=== PATIENT | male | born 1940 | race Caucasian/White ===

== ENCOUNTER → 2018-02-10 | Outpatient (CLI) | payer OTHER ==
[~2018-02-10] MED LIST: Aspirin PO; GLUC-145 PO; HYDR-2132 PO; HYDR12.54 PO
== END | disposition home or self-care (01) ==
LOC: RAH 14:48
PROVIDERS: ATTEND Internal Medicine
DX: N50.3 Cyst of epididymis (principal)
CPT/HCPCS: 76870

== ENCOUNTER → 2018-06-09 | Outpatient (CLI) | payer OTHER | END | disposition home or self-care (01) | LOC: SHCH 08:15 | PROVIDERS: ATTEND Internal Medicine Cardiovascular Disease | DX: R94.31 Abnormal electrocardiogram [ECG] [EKG] (principal) | CPT/HCPCS: 93306 ==

== ENCOUNTER → 2018-06-16 | Outpatient (CLI) | payer OTHER ==
[~2018-06-16] VITALS: Ht 175.3 cm; Wt 95.3 kg
[~2018-06-16] MED LIST changes: +REGADENOSON 0.4 MG/5 ML PF SYG IVP SCH
== END | disposition home or self-care (01) ==
LOC: SHCH 08:20
PROVIDERS: ATTEND Internal Medicine Cardiovascular Disease
DX: Z01.810 Encounter for preprocedural cardiovascular examination (principal)
CPT/HCPCS: 78452; 93017; 96374; A9500 ×2; J2785

== ENCOUNTER 2018-10-23 06:32 | Day surgery (SDC) | payer OTHER ==
[2018-10-21 10:36] VITALS: BP 142/58
[2018-10-21 10:45] LABS: BASOPHILS % (AUTO) 1.2 % (0.0-5.0); HEMATOCRIT 35.5 % (42-54); LYMPHOCYTES % (AUTO) 28.5 % (21.0-51.0); MEAN CORPUSCULAR HEMOGLOBIN 32.9 pg (27.0-33.0); MEAN CORPUSCULAR HGB CONC 33.6 g/dL (32.0-36.0); MEAN CORPUSCULAR VOLUME 97.9 fL (79-99); MONOCYTES % (AUTO) 10.4 % (3.0-13.0); NEUTROPHILS % (AUTO) 56.9 % (40.0-77.0); PLATELET COUNT (AUTO) 179 K/uL (130-400); RED BLOOD CELL COUNT(AUTO) 3.62 MIL/uL (4.50-6.20); RED CELL DISTRIBUTION WIDTH 12.8 % (11.0-15.5)
[2018-10-21 10:45] LABS: APPEARANCE,URINE Clear (CLEAR); BILIRUBIN,URINE Negative (NEGATIVE); COLOR,URINE Yellow (YELLOW); GLUCOSE, URINE (UA) Negative (NEGATIVE); KETONES,URINE Negative (NEGATIVE); LEUKOCYTE ESTERASE ,URINE Negative (NEGATIVE); NITRATE,URINE Negative (NEGATIVE); OCCULT BLOOD,URINE Negative (NEGATIVE); PROTEIN,URINE Negative (NEGATIVE)
[2018-10-21 10:53] LABS: CREATININE 0.9 mg/dL (0.5-1.5); POTASSIUM 4.3 mmol/L (3.5-5.1)
[2018-10-21 10:56] LABS: INR 0.95 (0.85-1.15); PARTIAL THROMBOPLASTIN TIME 29.3 SEC (26.3-35.5)
[2018-10-23] VITALS (8 sets, daily range): BP systolic 120–138; BP diastolic 51–62
[~2018-10-23] VITALS: Ht 179.1 cm; Wt 92.8 kg
[~2018-10-23 06:32] MED LIST changes: -Aspirin PO; -GLUC-145 PO; -HYDR-2132 PO; -HYDR12.54 PO; +LISI2.5T2 PO; -REGADENOSON 0.4 MG/5 ML PF SYG IVP SCH; +ROSU20TA31 PO
--- NOTE | 2018-10-23 06:46 | NUR ---
PATIENT ARRIVED PATIENT ARRIVED TO DAY PATIENT ACCOMPANIED BY SPOUSE. PATIENT AAOX3, RESPIRATIONS UNLABORED, VITAL SIGNS STABLE, DENIES PAIN AT THIS TIME. PROCEDURE VERIFIED AND CONFIRMED WITH PATIENT. PATIENT INSTRUCTED ON HOSPITAL ROUTINE, ALL QUESTIONS/CONCERNS ADDRESSED. CALL REYES WITHIN REACH, SIDE RAILS UPX2, BED IN LOWEST POSITION.
[2018-10-23] MEDS ORDERED: SODIUM CHLORIDE 0.9% 1000ML 1,000 ML IV ONE (08:24)
--- NOTE | 2018-10-23 08:30 | NUR ---
PATIENT TRANSFERRED PATIENT TAKEN TO CADDY/CADDIE SUPERVISOR VIA BED BY BLAZE RUIZ. SPOUSE INSTRUCTED TO WAIT IN ROOM FOR PATIENT TO RETURN IN ORDER TO SPEAK WITH PHYSICIAN FOLLOWING THE PROCEDURE.
[2018-10-23] MEDS ORDERED: LIDOCAINE HCL 1% 20 ML VIAL ONE (08:34)
[2018-10-23] MEDS ORDERED: IOHEXOL-350 50ML VIAL IV ONE (08:35)
[2018-10-23] MEDS ORDERED: BIVALIRUDIN 250 MG/VIAL IV ONE (08:35)
[2018-10-23] MEDS ORDERED: HEPARIN SODIUM 1000UNIT/ML 10ML VIAL ONE (08:35)
[2018-10-23] MEDS ORDERED: VERAPAMIL HCL 2.5 MG/ML VIAL ONE (08:35)
[2018-10-23] MEDS ORDERED: NITROGLYCERIN 5 MG/ML 10 ML VIAL IV ONE (08:35)
[2018-10-23] MEDS ORDERED: IOHEXOL 350 MG/ML 100ML INFUS..BTL IV ONE (08:35)
[2018-10-23] MEDS ORDERED: MIDAZOLAM HCL 1 MG/ML 2ML VIAL ONE (09:17)
[2018-10-23] MEDS ORDERED: FENTANYL CITRATE PF 50 MCG/1 ML 2ML VIAL ONE (09:17)
[2018-10-23] MEDS ORDERED: SODIUM CHLORIDE 0.9% 1000ML 1,000 ML IV SCH (10:12)
--- NOTE | 2018-10-23 10:35 | NUR ---
PATIENT RETURNED PATIENT BROUGHT BACK FROM ADMISSIONS RECRUITER VIA BED BY BLAZE GTZ. PATIENT AAOX3, RESPIRATIONS UNLABORED, VITAL SIGNS STABLE, DENIES ANY PAIN. TR BAND TO RIGHT WRIST. NO BLEEDING NOTED, NAIL BEDS PINK.
--- NOTE | 2018-10-23 11:00 | NUR ---
TR BAND TR BAND TO RIGHT WRIST. NO BLEEDING NOTED, NAIL BEDS PINK. RADIAL PULSES STRONG BILATERALLY. 2ML AIR REMOVED FROM TR BAND. NO BLEEDING NOTED. PATIENT TOLERATED WELL.
--- NOTE | 2018-10-23 11:20 | NUR ---
TR BAND 2ML REMOVED TR BAND TO RIGHT WRIST. NO BLEEDING NOTED, NAIL BEDS PINK. RADIAL PULSES STRONG BILATERALLY. 2ML AIR REMOVED FROM TR BAND. NO BLEEDING NOTED. PATIENT TOLERATED WELL.
--- NOTE | 2018-10-23 12:20 | NUR ---
TR BAND 2 ML REMOVED TR BAND TO RIGHT WRIST. NO BLEEDING NOTED, NAIL BEDS PINK. RADIAL PULSES STRONG BILATERALLY. 2ML AIR REMOVED FROM TR BAND. NO BLEEDING NOTED. PATIENT TOLERATED WELL.
--- NOTE | 2018-10-23 12:35 | NUR ---
TR BAND REMOVED TR BAND REMOVED ORDERED. VELCRO BAND REMOVED, ACCESS SITE STABILIZED WITH GENTLE PRESSURE. STERILE DRESSING APPLIED TO ACCESS SITE. PATIENT TOLERATED WELL, NO SIGNS OF BLEEDING NOTED. RADIAL PULSES STRONG BILATERALLY. NAIL BEDS PINK.
--- NOTE | 2018-10-23 13:40 | NUR ---
DISCHARGED DISCHARGE INSTRUCTIONS GIVEN TO PATIENT AND PATIENT'S SPOUSE. FOLLOW UP APPOINTMENTS PROVIDED AND RADIAL SITE CARE PROVIDED. PATIENT AND SPOUSE VERBALIZED UNDERSTANDING. EXPLAINED S/S OF INFECTION TO MONITOR FOR AND REPORT TO PHYSICIAN. ALL QUESTIONS/CONCERNS ADDRESSED. PATIENT DISCHARGED VIA WHEELCHAIR AND TAKEN TO PRIVATE VEHICLE.
== END 2018-10-23 13:40 | disposition home or self-care (01) ==
LOC: DAH 06:32
PROVIDERS: ATTEND Internal Medicine Cardiovascular Disease
DX: I34.0 Nonrheumatic mitral (valve) insufficiency (principal); I51.7 Cardiomegaly; G47.33 Obstructive sleep apnea (adult) (pediatric); M19.90 Unspecified osteoarthritis, unspecified site; E78.5 Hyperlipidemia, unspecified; I25.2 Old myocardial infarction; Z79.899 Other long term (current) drug therapy; Z96.642 Presence of left artificial hip joint; Z96.652 Presence of left artificial knee joint; Z87.891 Personal history of nicotine dependence; Z72.89 Other problems related to lifestyle; Z79.01 Long term (current) use of anticoagulants
CPT/HCPCS: 36415; 71045; 80048; 81003; 85025; 85610; 85730; 93005; 93458; A4606; C1769 ×3; C1894; J1644 ×2; J2250; J3010; J3490 ×2; J7030; Q9965 ×2; Q9967 ×2; 99156; 99157; J0583

== ENCOUNTER → 2018-11-13 | Outpatient (CLI) | payer OTHER ==
[~2018-11-13] VITALS: Ht 177.8 cm; Wt 95.3 kg
[~2018-11-13] MED LIST changes: +REGADENOSON 0.4 MG/5 ML PF SYG IVP SCH
== END | disposition home or self-care (01) ==
LOC: SHCH 07:42
PROVIDERS: ATTEND Internal Medicine Cardiovascular Disease
DX: I50.22 Chronic systolic (congestive) heart failure (principal)
CPT/HCPCS: 78481; A9512

== ENCOUNTER 2019-08-18 12:00 | Observation (INO) | payer OTHER ==
[~2019-08-18] VITALS: Ht 179.1 cm; Wt 96.2 kg
[2019-08-20 08:37] VITALS: BP 139/67
[2019-08-20 10:16] LABS: BASOPHILS % (AUTO) 1.1 % (0.0-5.0); EOSINOPHILS % (AUTO) 3.4 % (0.0-8.0); HEMATOCRIT 37.9 % (42-54); LYMPHOCYTES % (AUTO) 26.6 % (21.0-51.0); MEAN CORPUSCULAR HEMOGLOBIN 32.3 pg (27.0-33.0); MEAN CORPUSCULAR HGB CONC 33.2 g/dL (32.0-36.0); MEAN CORPUSCULAR VOLUME 97.2 fL (79-99); MONOCYTES % (AUTO) 12.5 % (3.0-13.0); NEUTROPHILS % (AUTO) 56.2 % (40.0-77.0); PLATELET COUNT (AUTO) 216 K/uL (130-400); RED CELL DISTRIBUTION WIDTH 12.5 % (11.0-15.5); WHITE BLOOD COUNT (AUTO) 4.4 K/uL (4.8-10.8)
[2019-08-20 10:33] LABS: APPEARANCE,URINE Clear (CLEAR); BILIRUBIN,URINE Negative (NEGATIVE); COLOR,URINE Yellow (YELLOW); GLUCOSE, URINE (UA) Negative (NEGATIVE); KETONES,URINE Negative (NEGATIVE); LEUKOCYTE ESTERASE ,URINE Negative (NEGATIVE); NITRATE,URINE Negative (NEGATIVE); OCCULT BLOOD,URINE Negative (NEGATIVE); PH,URINE 5.5 (5.0-8.0); PROTEIN,URINE Negative (NEGATIVE); UROBILINOGEN,URINE 0.2 mg/dL (0.2-1.0)
[2019-08-21] MEDS ORDERED: LOSA25TA41 PO (08:51)
[2019-08-24] VITALS (24 sets, daily range): BP systolic 106–151; BP diastolic 58–86
[2019-08-24] MEDS: CEFAZOLIN SODIUM 1 GM VIAL IVP SCH ×3 (05:00→17:28)
[2019-08-24] MEDS ORDERED: LACTATED RINGERS 1000ML 1,000 ML IV ONE (06:02)
--- NOTE | 2019-08-24 06:36 | NUR ---
SX RIGHT KNEE CLIPPED AND WIPED WITH MONICA BY MIRTHA
[2019-08-24] MEDS ORDERED: LIDOCAINE PF 2% 5ML ABBOJECT ONE (07:17)
[2019-08-24] MEDS ORDERED: ROPIVACAINE 0.5% 5MG/ML 30ML IJ ONE (07:17)
[2019-08-24] MEDS ORDERED: SUCCINYLCHOLINE CHLORIDE 20 MG/ML 10 ML VIAL ONE (07:17)
[2019-08-24] MEDS ORDERED: PROPOFOL 10 MG/ML 20ML VIAL IV ONE (07:17)
[2019-08-24] MEDS ORDERED: ACETAMINOPHEN EXTRA STRENGTH 500 MG TABLET ONE (08:11)
[2019-08-24] MEDS ORDERED: CELECOXIB 200 MG CAP ONE (08:12)
[2019-08-24] MEDS ORDERED: KETOROLAC TROMETHAMINE 15MG/ML ONE (08:12)
[2019-08-24] MEDS ORDERED: ROCURONIUM 10MG/1ML SYR 10 MG/ML ML ONE (08:35)
[2019-08-24] MEDS ORDERED: CEFAZOLIN SODIUM 1 GM VIAL ONE (08:48)
[2019-08-24] MEDS ORDERED: TRANEXAMIC ACID 1000MG/10ML ONE ×2 (08:48→11:14)
[2019-08-24] MEDS ORDERED: EPHEDRINE SULFATE 50 MG/ML AMPULE ONE (09:05)
[2019-08-24] MEDS ORDERED: GLYCOPYRROLATE 1 MG/5 ML SYRINGE ONE (09:06)
[2019-08-24] MEDS ORDERED: NEOSTIGMINE 5MG/5ML SYR IV ONE (09:06)
[2019-08-24] MEDS ORDERED: FENTANYL CITRATE PF 50 MCG/1 ML 2ML VIAL ONE ×2 (09:21→09:29)
[2019-08-24] MEDS ORDERED: ONDANSETRON HCL 4 MG/2 ML VIAL ONE (10:39)
[2019-08-24] MEDS: SODIUM CHLORIDE 0.9% 1000ML 1,000 ML IV SCH ×2 (10:46→20:32)
[2019-08-24] MEDS ORDERED: FERROUS FUMARATE 324 MG TABLET PO PRN (11:00)
[2019-08-24] MEDS ORDERED: POTASSIUM CHLORIDE 20 MEQ ERTAB PO PRN (11:00)
[2019-08-24] MEDS: ACETAMINOPHEN EXTRA STRENGTH 500 MG TABLET PO SCH ×2 (11:00→20:31)
[2019-08-24] MEDS ORDERED: ONDANSETRON HCL 4 MG/2 ML VIAL IVP PRN (11:00)
[2019-08-24] MEDS ORDERED: LIDOCAINE HCL-MPF 1% 2ML VIAL IV PRN (11:00)
[2019-08-24] MEDS ORDERED: TRAMADOL HCL 50 MG TABLET PO PRN (11:00)
[2019-08-24] MEDS ORDERED: TEMAZEPAM 15 MG CAPSULE PO PRN (11:00)
[2019-08-24] MEDS ORDERED: POTASSIUM CHLORIDE 20MEQ/100ML 100 ML IV PRN (11:00)
[2019-08-24] MEDS ORDERED: POTASSIUM CHLORIDE 10% ELIXIR 20 MEQ/15 ML UDCUP PO PRN (11:00)
[2019-08-24] MEDS ORDERED: OXYCODONE HCL 5 MG TAB PO PRN (11:00)
[2019-08-24] MEDS ORDERED: KETOROLAC TROMETHAMINE 15MG/ML IV PRN (11:00)
[2019-08-24] MEDS ORDERED: DiphenhydrAMINE HCL 50 MG/ML VIAL IVP PRN (11:00)
--- NOTE | 2019-08-24 15:12 | NUR ---
DC PLAN VISITED WITH PATIENT. PATIENT LIVES WITH SPOUSE AND DAUGHTER. INDEPENDENT ABLE TO PERFORM ADL'S. PATIENT HAS WALKER, WHEEL CHAIR, BEDSIDE COMMODE AVAILABLE DOES NOT USE. PATIENT FEELS SAFE TO RETURN HOME. ASKED IF HE REMEMBERED WHO THE HOME HEALTH HE GOT LAST TIME. SAID HE COULD NOT REMEMBER. EXPLAINED HE WAS WELLMED. THE HOME HEALTH THEY USE IS [facility]. SAID HE GETS CPAP FROM THEM. OKAY TO SEND REFERRAL GIVEN. PACKET FAXED 08/23 AT 1510. Addendum: 08/24/19 at 1515 by REBECCA NDIAYE RN CM Amended: Links added.
--- NOTE | 2019-08-24 19:00 | NUR ---
ACTIVITY PATIENT WAS SEEN BY PT AND HIS LEGS WERE DANGLED OFF THE EDGE OF BED AND PATIENT TOLERATED WELL.
[2019-08-24] MEDS: FAMOTIDINE 20MG TAB 20 MG TAB PO SCH (20:31)
[2019-08-24] MEDS: PREGABALIN 25 MG CAP PO SCH (20:31)
[2019-08-24] MEDS: OXYCODONE HCL 5 MG TAB PO PRN (20:32)
[2019-08-24] MEDS: CELECOXIB 200 MG CAP PO SCH (20:32)
[2019-08-24] MEDS: ASPIRIN 81MG TAB.CHEW PO SCH (20:32)
[2019-08-24] MEDS ORDERED: BENZOCAINE/MENTH/CETYLPYRD CL 1 EACH LOZENGE MM ONE (20:42)
[2019-08-24] MEDS ORDERED: BENZOCAINE/MENTH/CETYLPYRD CL 1 EACH LOZENGE MM PRN (21:00)
[2019-08-25] MEDS: CEFAZOLIN SODIUM 1 GM VIAL IVP SCH (00:14)
[2019-08-25] MEDS: HYDROMORPHONE HCL 2 MG/ML VIAL IVP PRN ×4 (00:15→06:16)
[2019-08-25] MEDS: ACETAMINOPHEN EXTRA STRENGTH 500 MG TABLET PO SCH ×3 (02:03→17:40)
[2019-08-25] MEDS: OXYCODONE HCL 5 MG TAB PO PRN ×4 (02:04→13:13)
[2019-08-25 04:00] VITALS: BP 143/69
[2019-08-25 04:23] LABS: HEMATOCRIT 30.1 % (42-54); MEAN CORPUSCULAR HEMOGLOBIN 32.5 pg (27.0-33.0); MEAN CORPUSCULAR HGB CONC 33.6 g/dL (32.0-36.0); MEAN CORPUSCULAR VOLUME 96.8 fL (79-99); RED BLOOD CELL COUNT(AUTO) 3.11 MIL/uL (4.50-6.20); RED CELL DISTRIBUTION WIDTH 12.3 % (11.0-15.5); WHITE BLOOD COUNT (AUTO) 4.9 K/uL (4.8-10.8)
[2019-08-25 04:39] LABS: POTASSIUM 3.7 mmol/L (3.5-5.1)
[2019-08-25] MEDS: SODIUM CHLORIDE 0.9% 1000ML 1,000 ML IV SCH (06:46)
[2019-08-25 08:40] VITALS: BP 135/66
[2019-08-25] MEDS: PREGABALIN 25 MG CAP PO SCH ×2 (08:51→20:20)
[2019-08-25] MEDS: ASPIRIN 81MG TAB.CHEW PO SCH ×2 (08:51→20:20)
[2019-08-25] MEDS: CELECOXIB 200 MG CAP PO SCH ×2 (08:51→20:20)
[2019-08-25] MEDS: FAMOTIDINE 20MG TAB 20 MG TAB PO SCH ×2 (08:51→20:20)
[2019-08-25] MEDS: CALCIUM CARBONATE 500 MG TABLET PO PRN ×2 (08:51→20:20)
[2019-08-25] MEDS ORDERED: TAMSULOSIN HCL 0.4 MG CAP.ER.24H PO SCH (09:00)
[2019-08-25] MEDS ORDERED: POLYETHYLENE GLYCOL 3350 17 GM POWD.PACK PO SCH (09:00)
[2019-08-25 11:44] VITALS: BP 116/57
--- NOTE | 2019-08-25 13:16 | NUR ---
DC PLAN SPOKE TO [facility] SAID THEY DID NOT RECEIVE PACKET. INFO REFAXED AND EMAILED THIS MORNING. JONATHAN WILL CONTINUE TO FOLLOW. Addendum: 08/25/19 at 1319 by REBECCA NDIAYE RN CM Amended: Links added.
--- NOTE | 2019-08-25 13:50 | NUR ---
[facility] ACCEPTED PATIENT. CAN NOT SEE PATIENT UNTIL 08/26 NEXT SLOT OPEN. LET NURSE KNOW. INFO ON [facility]. Addendum: 08/25/19 at 1352 by REBECCA NDIAYE RN CM Amended: Links added.
--- NOTE | 2019-08-25 16:43 | NUR ---
DISCHARGE TO HOME CARE [facility]. [phone] REPORT GIVEN TO NATHALIE HUANG RN APPOINTMENT(S): PLEASE FOLLOW UP WITH DR. FITZGERALD ON SEPTEMBER 16, 2019 AT 10:00 A.M. Call office for any concerns 15/10 at CALL 911 OR GO TO EMERGENCY ROOM IF YOU HAVE ANY CHEST PAIN/DISCOMFORT, SHORTNESS OF BREATH/DIFFICULTY BREATHING OR NEEDED. Total Knee Arthroplasty Discharge Orders ACTIVITY: -Patient may ambulate as tolerated with walker, weight bearing as tolerated -When patient resting keep leg(s) elevated but avoid placing pillows under knees WOUND CARE: -Nurse to remove dressing on: 08/31/19 and continue daily dressing changes if needed after removing first dressing -Patient may shower and get dressing wet, follow nurse instructions to protect dressings battery DIET: -Resume patients previous home diet. MEDICATIONS: -Resume home medications as reviewed/instructed. -Have patient take prescription medications as instructed. -If patient needs refill on prescription pain medications, please have patient call a few days before patient takes their last pain pill. PHYSICAL THERAPY: Please follow therapist instructions for: -gait training with walker and weight bearing as tolerated, advance to cane as per therapist discretion -active/passive assisted flexion/extension exercises to operative knee(s) -quadriceps strengthening/hamstring stretching exercises to operative knee(s) -modalities as per physical therapist discretion
[2019-08-25 17:11] VITALS: BP 151/69
[2019-08-25 19:47] VITALS: BP 164/76
[2019-08-25] MEDS ORDERED: ASPI-1005 PO (19:47)
[2019-08-25] MEDS ORDERED: HYDR-4457 PO (19:47)
--- NOTE | 2019-08-25 20:50 | NUR ---
DISCHARGE PATIENT DISCHARGED AT THIS TIME. IV CATHETER DISCONTINUED, CATHETER TIP INTACT. OG DRESSING TO RIGHT KNEE CHANGED PER MD ORDER, SITE CLEAN AND DRY NO REDNESS, OR DRAINAGE OBSERVED. INSTRUCTED PATIENT THAT HOME HEALTH NURSE WOULD REMOVE DRESSING 08/31/19 PER MD DISCHARGE ORDERS. DISCHARGE INSTRUCTIONS GIVEN TO PATIENT, INSTRUCTED TO CONTINUE HOME MEDICATIONS, NEW PRESCRIPTIONS WERE SENT TO [facility] BY [facility] BY DR. FITZGERALD, EDUCATED ON IMPORTANCE OF VTE-ASPIRIN, INSTRUCTED ON HOW TO CARE FOR OG DRESSING. PATIENT VERBALIZED UNDERSTANDING. ALL BELONGINGS WERE RETURNED TO PATIENT, PATIENT WAS ASSISTED INTO WHEELCHAIR AND TAKEN DOWN TO PERSONAL VEHICLE BY PHOSPHORIC ACID OPERATOR. Addendum: 08/25/19 at 2321 by BRIEN DENNY RN Amended: Links added.
[2019-08-27] MEDS ORDERED: BISACODYL 10 MG SUPP.RECT RC PRN (11:00)
--- NOTE | 2019-08-27 16:18 | NUR ---
DC PLAN DR. FITZGERALD CALLED SAID THAT [facility] CALLED [phone]. SAID THEY HAD BEEN TRYING TO REACH HOSPITAL AND HAD NOT BEEN ABLE TO. I HAVE NOT RECEIVED ANY CALLS. CALLED [facility] SPOKE TO CRU[facility] SAID THAT PATIENT IS ACCEPTED AND GOING TO SEE PATIENT TODAY. NOT SURE WHY THEY CALLED DR. FITZGERALD. SENT MESSAGE TO [facility] AND GOT REPLY BACK SAYING ALL GOOD. CALLED DR. FITZGERALD AND LET HIM KNOW NO PROBLEMS EVERYTHING GOOD. Addendum: 08/27/19 at 1620 by REBECCA NDIAYE RN CM Amended: Links added.
--- NOTE | 2019-08-28 17:40 | NUR ---
cm note received call from Dr mitchell, regarding this pt, and home health initiaing services, also states received a call from dr Bartolo dan asking him which services were needed for pt. informed him this cm will followup. call made to pt and spoke to him and states that they were some delays in starting services, but is ok now, and did have issues with making an appointment with dr bartolo dan, but is scheduled to see him on saturday. and pt states he has no issues at this time. call made to [facility] [phone]. they were able to connect me to the RN, JONATHAN Dan and she states that they have already started services for PT and SN, and they will see pt next week for PT 3Xwk, and also SN will see pt for dressing change. she states is not aware of any issues with orders or anything else. and will continue to see pt.
== END 2019-08-25 21:10 | disposition home health service (06) ==
LOC: EDSTATUS 08-19 11:00 → DAHIP 08-24 05:25 → 4AH 08-24 13:43 → 3DH 08-24 17:52
PROVIDERS: ADMIT Orthopaedic Surgery; ATTEND Orthopaedic Surgery
DX: M17.11 Unilateral primary osteoarthritis, right knee (principal); M23.8X1 Other internal derangements of right knee; M25.561 Pain in right knee; I11.0 Hypertensive heart disease with heart failure; I50.9 Heart failure, unspecified; I25.2 Old myocardial infarction; E78.5 Hyperlipidemia, unspecified
CPT/HCPCS: 27447; 36415 ×2; 80048; 81003; 85025; 85027; 87641; 96374; 96375 ×2; 96376 ×2; 97039 ×3; 97116 ×2; 97161; 97530 ×3; A4213; A4215; A4221; A4222; A4223; A4649 ×3; A4663; A4930 ×2; A5120; A9272; C1776; G0378 ×21; G8978; G8979; G8980; G8981; G8982; G8983; J0330; J0690 ×5; J1170 ×4; J1885 ×2; J2001; J2405; J2704; J2710; J2795; J3010 ×2; J3490 ×4; J7030; J7120 ×2; U0003

== ENCOUNTER → 2020-08-31 | Outpatient (CLI) | payer OTHER ==
[~2020-08-31] MED LIST changes: +ASPI-1005 PO; +HYDR-4457 PO; -LISI2.5T2 PO; +LOSA25TA41 PO; -REGADENOSON 0.4 MG/5 ML PF SYG IVP SCH; -ROSU20TA31 PO
== END | disposition home or self-care (01) ==
LOC: SHCH 09:53
PROVIDERS: ATTEND Internal Medicine Cardiovascular Disease
DX: I42.9 Cardiomyopathy, unspecified (principal)
CPT/HCPCS: 93306; 93356

== ENCOUNTER → 2023-07-15 | Outpatient (CLI) | payer OTHER | END | disposition home or self-care (01) | LOC: RAH 10:11 | PROVIDERS: ATTEND Internal Medicine Gastroenterology | DX: N44.2 Benign cyst of testis (principal); K40.90 Unilateral inguinal hernia, without obstruction or gangrene, not specified as recurrent; N28.1 Cyst of kidney, acquired; N50.819 Testicular pain, unspecified | CPT/HCPCS: 76870 ==

== ENCOUNTER → 2024-03-11 | Outpatient (CLI) | payer OTHER ==
[~2024-03-11] MED LIST changes: -ASPI-1005 PO; +ATOR10TA69 PO; +GABA-529 PO; +GADOTERATE MEGLUMINE 10 MMOL/20 ML VIAL IV ONE; -HYDR-4457 PO; -LOSA25TA41 PO; +MEMA5TAB16 PO; +MONT-39 PO
--- NOTE | 2024-03-11 09:52 | HMCIMG ---
MR BRAIN WWO CON HISTORY: Memory loss COMPARISON: None TECHNIQUE: MRI of the brain was performed utilizing multiple pulse sequences in axial, coronal and sagittal planes. Patient was given 17 cc of Clariscan through intravenous route. FINDINGS: The ventricles and extraventricular CSF spaces are dilated consistent with cerebral atrophy. Nonspecific white matter changes are seen. There is no midline shift, mass effect or herniation. No subacute hemorrhage is seen. No MR evidence of acute infarct is seen in the diffusion weighted images. Cerebellar tonsils are in normal position. No evidence of mucoperiosteal thickening is seen of the visualized paranasal sinuses. No MR evidence of mass lesion or abnormal enhancement is seen. IMPRESSION: 1. No MR evidence of acute infarct is seen in the diffusion weighted images. Atrophy with white matter changes. No mass lesion or abnormal enhancement is seen.
== END | disposition home or self-care (01) ==
LOC: RAH 07:43
PROVIDERS: ATTEND Family Medicine
DX: G31.89 Other specified degenerative diseases of nervous system (principal); R90.82 White matter disease, unspecified; R93.0 Abnormal findings on diagnostic imaging of skull and head, not elsewhere classified
CPT/HCPCS: 70553; A9575

== ENCOUNTER → 2024-10-16 | Outpatient (CLI) | payer OTHER ==
[~2024-10-16] MED LIST changes: -GADOTERATE MEGLUMINE 10 MMOL/20 ML VIAL IV ONE
--- NOTE | 2024-10-17 11:36 | HMCIMG ---
US CAROTID DUPLEX REASON: Benign paroxysmal vertigo TECHNIQUE: Exam was performed using spectral analysis and color flow imaging. FINDINGS: Color flow Doppler ultrasound shows normal-appearing bifurcations. There is no anatomic evidence of significant focal narrowing. Flow velocities and velocity ratios appear normal throughout. There is antegrade flow in both vertebral arteries. There is calcified plaque seen in both common and internal carotid artery which is not hemodynamically significant. RIGHT CAROTID: CCA: 50 cm/sec ICA: 53 cm/sec Ratio: ICA/CCA: 1.1 ECA: 64 cm/sec Vertebral artery: 46 cm/sec LEFT CAROTID: CCA: 80 cm/sec ICA: 73 cm/sec Ratio: ICA/CCA: 0.9 ECA: 80 cm/sec Vertebral artery: 28 cm/sec IMPRESSION Calcified plaque seen in the distal common carotid artery bilaterally. Both internal carotid artery which is not hemodynamically significant. Otherwise:Normal bilateral carotid Doppler ultrasound.
== END | disposition home or self-care (01) ==
LOC: RAH 13:45
PROVIDERS: ATTEND Internal Medicine
DX: I65.23 Occlusion and stenosis of bilateral carotid arteries (principal); H81.10 Benign paroxysmal vertigo, unspecified ear
CPT/HCPCS: 93880